=== PATIENT | male | born 1980 | race African-American/Black ===

== ENCOUNTER 2017-02-06 20:18 | Emergency (ER) | payer BC ==
[~2017-02-06] VITALS: Ht 180.3 cm; Wt 65.8 kg
[~2017-02-06 20:18] MED LIST: NKHM; PEPCID20 MG PO
== END 2017-02-06 21:22 | disposition home or self-care (01) ==
LOC: ED 20:18
DX: S71.112A Laceration without foreign body, left thigh, initial encounter (principal); F17.200 Nicotine dependence, unspecified, uncomplicated; W26.0XXA Contact with knife, initial encounter; Y93.H2 Activity, gardening and landscaping; Y92.9 Unspecified place or not applicable; Y99.9 Unspecified external cause status

== ENCOUNTER 2021-07-24 23:44 | Emergency (ER) | payer OTHER ==
[~2021-07-24] VITALS: Ht 180.3 cm; Wt 81.6 kg
[2021-07-25 02:11] LABS: BASO # 0.1 10*3/uL (0.0-0.1); BASO % 0.6 % (0.0-1.0); EOS # 0.2 10*3/uL (0.0-0.4); EOS % 2.8 % (1.0-4.0); HEMATOCRIT 47.2 % (42.0-52.0); LYMPH # 2.1 10*3/uL (1.3-4.4); LYMPH % 26.8 % (27.0-41.0); MEAN CELL VOLUME 96.3 fl (80.0-94.0); MEAN CORPUSCULAR HGB 32.4 pg (27.0-31.0); MEAN CORPUSCULAR HGB CONC 33.7 g/dl (33.0-37.0); MEAN PLATELET VOLUME 8.2 fl (9.6-12.3); MONO # 0.9 10*3/uL (0.1-1.0); MONO % 11.2 % (3.0-9.0); NEUT # 4.6 10*3/uL (2.3-7.9); NEUT % 58.1 % (47.0-73.0); PLATELET COUNT AUTOMATED 337 10*3/uL (130-400); RED CELL DISTRI WIDTH 12.9 % (0-14.5)
[2021-07-25 02:28] LABS: ALBUMIN 3.7 gm/dl (3.1-4.5); ALKALINE PHOSPHATASE 71 U/L (45-117); BUN 12 mg/dl (7-24); CHLORIDE 103 mmol/L (98-107); CREATININE 0.77 mg/dL (0.70-1.30); LIPASE 265 U/L (73-393); POTASSIUM 3.7 mmol/L (3.5-5.1); SGOT/AST 31 IU/L (3-35); SGPT/ALT 30 U/L (12-78); SODIUM 136 mmol/L (136-145); TOTAL PROTEIN 7.1 gm/dL (6.4-8.2)
[2021-07-25 02:58] LABS: BILIRUBIN Negative (Negative); BLOOD Negative (Negative); CLARITY Clear (Clear); COLOR Yellow (Yellow); GLUCOSE Negative (Negative); KETONE 1+ (Negative); LEUKO ESTERASE Trace (Negative); NITRITE Negative (Negative); SPECIFIC GRAVITY 1.015 (1.001-1.030)
[2021-07-25 03:28] LABS: BACTERIA TRACE
[2021-07-25] MEDS ORDERED: DICYCLOMINE HCL20 MG PO (06:29)
== END 2021-07-25 06:45 | disposition home or self-care (01) ==
LOC: ED 23:44
PROVIDERS: Emergency Medicine
DX: R10.31 Right lower quadrant pain (principal); R10.32 Left lower quadrant pain

== ENCOUNTER 2024-06-10 19:47 | Emergency (ER) | payer OTHER ==
[~2024-06-10] VITALS: Ht 180.3 cm; Wt 65.8 kg
[~2024-06-10 19:47] MED LIST changes: +DICYCLOMINE HCL20 MG PO
[2024-06-10] MEDS ORDERED: Doxycycline Hyclate 100 MG CAP PO ONE ×3 (20:05→20:25)
[2024-06-10 20:18] LABS: BILIRUBIN Negative (Negative); BLOOD Negative (Negative); CLARITY Clear (Clear); COLOR Yellow (Yellow); GLUCOSE Negative (Negative); KETONE Negative (Negative); LEUKO ESTERASE 3+ (Negative); NITRITE Negative (Negative); SPECIFIC GRAVITY <= 1.005 (1.001-1.030); UROBILINOGEN 0.2 E.U./dl (0.0-1.0)
[2024-06-10] MEDS ORDERED: VIBRAMYCIN100 MG PO (20:22)
[2024-06-10 20:29] LABS: EPITHELIAL CELLS 0-2; WBC 51-100 wbc/hpf (0-5)
== END 2024-06-10 20:34 | disposition home or self-care (01) ==
LOC: ED 19:47
PROVIDERS: Nurse Practitioner Family
DX: A54.9 Gonococcal infection, unspecified (principal); A64 Unspecified sexually transmitted disease; Z79.899 Other long term (current) drug therapy